=== PATIENT | male | born 1965 | race Caucasian/White ===

== ENCOUNTER 2017-12-23 00:36 | Emergency (ER) | payer OTHER ==
[~2017-12-23] VITALS: Ht 188 cm; Wt 102.0 kg
[2017-12-23 00:47] VITALS: BP 146/84; PULSE 91; RESP 18; TEMP 98.8; O2SAT 96
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
[2017-12-23] MEDS ORDERED: LIDOCAINE 1%/EPINEPHrine 1:100,000 SOLN 30 ML VIAL ONE (01:42)
[2017-12-23] MEDS: LIDOCAINE HCL 1% 30 ML VIAL INFIL ONE ×2 (01:44→01:45)
[2017-12-23] MEDS ORDERED: LIDOCAINE HCL 1% 50 ML VIAL INFIL ONE (01:45)
[2017-12-23] MEDS ORDERED: SILVER SULFADIAZINE 1% CR 50 GM JAR TOPICAL ONE (01:45)
[2017-12-23] MEDS ORDERED: TETANUS/DIPHTHERIA TOXOID ADULT 0.5 ML VIAL IM ONE (01:45)
[2017-12-23] MEDS ORDERED: ALLO100T PO (01:47)
[2017-12-23] MEDS ORDERED: ENAL2.5T PO (01:47)
--- NOTE | 2017-12-23 02:43 | RADRPT ---
EXAM DATE/TIME: 12/23/2017 02:32 [facility] COMPARISON: No previous studies available for comparison. INDICATIONS : Trauma, fall. Laceration to forehead. RADIATION DOSE: 56.35 CTDIvol (mGy) MEDICAL HISTORY : Hypertension. SURGICAL HISTORY : None. ENCOUNTER: Initial ACUITY: 1 day PAIN SCALE: 5/10 LOCATION: cranial TECHNIQUE: Multiple contiguous axial images were obtained of the head. Using automated exposure control and adj ustment of the mA and/or kV according to patient size, radiation dose was kept as low as reasonably a chievable to obtain optimal diagnostic quality images. DICOM format image data is available electro nically for review and comparison. FINDINGS: There is no evidence for intracranial hemorrhage, mass effect, mass lesions, edema, or extra-axial fl uid collections. The visualized bony structures appear intact. The ventricles are normal size for t he patient's age. There are no signs of acute infarction for technique. CONCLUSION: Unremarkable study. Neil Treviño MD on December 23, 2017 at 2:40 Board Certified Radiologist. This report was verified electronically.
[2017-12-23] MEDS ORDERED: BUTA1CAP PO (02:47)
[2017-12-23] MEDS ORDERED: SILV1CRE20 TOPICAL (02:47)
== END 2017-12-23 02:57 | disposition home or self-care (01) ==
LOC: NEPE 00:36
DX: S01.111A Laceration without foreign body of right eyelid and periocular area, initial encounter (principal); T23.071A Burn of unspecified degree of right wrist, initial encounter; S09.8XXA Other specified injuries of head, initial encounter; T31.0 Burns involving less than 10% of body surface; Z23 Encounter for immunization; W01.0XXA Fall on same level from slipping, tripping and stumbling without subsequent striking against object, initial encounter; X16.XXXA Contact with hot heating appliances, radiators and pipes, initial encounter; I45.10 Unspecified right bundle-branch block; I10 Essential (primary) hypertension; G89.29 Other chronic pain; M54.5 Low back pain; Z72.0 Tobacco use
CPT/HCPCS: 12013; 16000; 70450; 90471; 90714